=== PATIENT | male | born 2000 | race Caucasian/White ===

== ENCOUNTER 2022-08-21 10:50 | Emergency (ER) | payer SELFPAY ==
[2022-08-21] MEDS ORDERED: DIPHENHYDRAMINE 50 MG/ML VIAL ONE (12:33)
[2022-08-21] MEDS ORDERED: dexAMETHasone 10 MG/ML VIAL ONE ×2 (12:34→12:35)
[2022-08-21] MEDS ORDERED: FAMOTIDINE 20 MG TAB ONE (12:34)
--- NOTE | 2022-08-21 13:53 | EDPHYS ---
Physician Documentation [facility] Name: Jeremy Russell Age: 22 yrs Sex: Male : 2000 Arrival Date: 08/21/2022 Time: 10:57 Bed 9 Private MD: ED Physician Juancarlos Byrne HPI: 08/21 12:27 This 22 yrs old Male presents to ER via Ambulatory with complaints of Allergic Reaction.pm1 12:27 The patient's rash thought to be caused by an unknown cause. The rash is located on the pm1 body diffusely. The rash can be described as raised. Onset: The symptoms/episode began/occurred 2 day(s) ago. Associated signs and symptoms: Pertinent positives: itching, sore throat. Severity of symptoms: in the emergency department the symptoms are worse. Treatment given at home: None. The patient has not experienced similar symptoms in the past. The patient has not recently seen a physician. Historical: - Allergies: 11:57 No Known Allergies; ph - PMHx: 11:57 None; ph - PSHx: 11:57 ear tubes; ph - Immunization history:: Adult Immunizations unknown. - Social history:: Smoking status: Patient denies any tobacco usage or history of. ROS: 12:27 Constitutional: Negative for fever, chills, and weight loss, Cardiovascular: Negative pm1 for chest pain, palpitations, and edema, Respiratory: Negative for shortness of breath, cough, wheezing, and pleuritic chest pain, Abdomen/GI: Negative for abdominal pain, nausea, vomiting, diarrhea, and constipation, MS/Extremity: Negative for injury and deformity. 12:27 ENT: Positive for sore throat. 12:27 Skin: Positive for rash, diffusely. 12:27 All other systems are negative. Exam: 12:27 Constitutional: This is a well developed, well nourished patient who is awake, alert, pm1 and in no acute distress. Head/Face: Normocephalic, atraumatic. 12:27 Back: No spinal tenderness. No costovertebral tenderness. Full range of motion. Skin: Warm, dry with normal turgor. Normal color with no rashes, no lesions, and no evidence of cellulitis. MS/ Extremity: Pulses equal, no cyanosis. Neurovascular intact. Full, normal range of motion. 12:27 Eyes: Exam is negative for acute changes, Periorbital structures: no acute changes, Extraocular movements: no acute changes, Conjunctiva: no acute changes, no injection. 12:27 ENT: Exam is negative for acute changes, Mouth: no acute changes, Lips: normal, moist, Oral mucosa: normal, pink and intact, moist, Posterior pharynx: is normal. 12:27 Neck: Exam negative for acute changes. 12:27 Cardiovascular: Exam negative for acute changes, Rate: normal, Rhythm: regular, Pulses: no pulse deficits are appreciated. 12:27 Respiratory: Exam negative for acute changes, respiratory distress, shortness of breath, Breath sounds: are clear throughout, no decreased breath sounds, no stridor, no wheezing. 12:27 Neuro: Exam negative for acute changes, Orientation: is normal, Mentation: is normal, Motor: is normal, moves all fours. Vital Signs: 11:00 BP 137 / 84; Pulse 101; Resp 18; Temp 97.8; Pulse Ox 100% on R/A; Weight 108.86 kg; ph Height 5 ft. 10 in. (177.80 cm); 11:00 Body Mass Index 34.44 (108.86 kg, 177.80 cm) ph MDM: 12:02 Patient medically screened. pm1 13:51 Data reviewed: vital signs. Data interpreted: Pulse oximetry: on room air is 100 %. pm1 Interpretation: normal. 13:51 ED course: Rash almost completely resolved. pm1 13:51 Counseling: I had a detailed discussion with the patient and/or guardian regarding: the pm1 historical points, exam findings, and any diagnostic results supporting the discharge/admit diagnosis, the need for outpatient follow up, an allergy/web application dev specialist, a family practitioner, to return to the emergency department if symptoms worsen or persist or if there are any questions or concerns that arise at home. Administered Medications: 12:44 Drug: Benadryl (diphenhydrAMINE) 25 mg Route: IM; Site: right deltoid; ph 14:00 Follow up: Response: No adverse reaction ph 12:44 Drug: Pepcid (famotidine) 20 mg Route: PO; ph 14:00 Follow up: Response: No adverse reaction; Marked relief of symptoms ph 12:44 Drug: Decadron (dexamethasone) 10 mg Route: IM; Site: right deltoid; ph 14:00 Follow up: Response: No adverse reaction; Marked relief of symptoms ph Disposition: 18:06 Co-signature as Attending Physician, Juancarlos Byrne MD I agree with the assessment and rt plan of care. Disposition Summary: 08/21/22 13:53 Discharge Ordered Location: Home pm1 Problem: new pm1 Symptoms: have improved pm1 Condition: Stable pm1 Diagnosis - Rash and other nonspecific skin eruption pm1 Followup: pm1 - With: Emergency Department - When: As needed - Reason: Worsening of condition Followup: pm1 - With: Private Physician - When: 2 - 3 days - Reason: Recheck today's complaints, Continuance of care, Re-evaluation by your physician Discharge Instructions: - Discharge Summary Sheet pm1 - Hives pm1 - Rash, Adult pm1 Forms: - Medication Reconciliation Form pm1 - Thank You Letter pm1 - Antibiotic Education pm1 - Prescription Opioid Use pm1 - Work release form eb Prescriptions: - Benadryl 25 mg Oral Capsule - take 1 capsule by ORAL route every 6 hours As needed; 30 tablet; Refills: 0, pm1 Product Selection Permitted - Pepcid 20 mg Oral Tablet - take 1 tablet by ORAL route every 12 hours for 10 days; 20 tablet; Refills: 0, pm1 Product Selection Permitted - Medrol (Mir) 4 mg Oral Tablets, Dose Pack - take 1 tablet by ORAL route as directed - follow package instructions; 1 pm1 packet; Refills: 0, Product Selection Permitted Signatures: Marcia Taylor, RN RN ph Isidro Ziegler, [employer] pm1 Juancarlos Byrne MD MD rt
--- NOTE | 2022-08-21 13:53 | ER ---
Nurse's Notes [facility] Name: Jeremy Russell Age: 22 yrs Sex: Male : 2000 Arrival Date: 08/21/2022 Time: 10:57 Bed 9 Private MD: Diagnosis: Rash and other nonspecific skin eruption Presentation: 08/21 11:00 Chief complaint: Patient states: N/V/D yesterday, today began to have itching and hives ph to arms, torso, and face,reports mild SOB, states that he took a pepto yesterday but has taken that before. Coronavirus screen: Vaccine status: Patient reports receiving the 1st dose of the Covid vaccine. Ebola Screen: No symptoms or risks identified at this time. Initial Sepsis Screen: Does the patient meet any 2 criteria? No. Patient's initial sepsis screen is negative. Does the patient have a suspected source of infection? No. Patient's initial sepsis screen is negative. Risk Assessment: Do you want to hurt yourself or someone else? Patient reports no desire to harm self or others. Onset of symptoms was August 21, 2022. 11:00 Method Of Arrival: Ambulatory ph 11:00 Acuity: JAYLIN 4 ph Historical: - Allergies: 11:57 No Known Allergies; ph - PMHx: 11:57 None; ph - PSHx: 11:57 ear tubes; ph - Immunization history:: Adult Immunizations unknown. - Social history:: Smoking status: Patient denies any tobacco usage or history of. Screenin:00 [facility] ED Fall Risk Assessment (Adult) History of falling in the last 3 months, ph including since admission No falls in past 3 months (0 pts) Confusion or Disorientation No (0 pts) Intoxicated or Sedated No (0 pts) Impaired Gait No (0 pts) Mobility Assist Device Used No (0 pt) Altered Elimination No (0 pt). Abuse screen: Denies threats or abuse. Denies injuries from another. Nutritional screening: No deficits noted. Tuberculosis screening: No symptoms or risk factors identified. Assessment: 12:00 General: Appears in no apparent distress. uncomfortable, Behavior is calm, cooperative, ph appropriate for age. Pain: Denies pain. Neuro: Level of Consciousness is awake, alert, obeys commands, Oriented to person, place, time, situation. Cardiovascular: Capillary refill < 3 seconds in bilateral fingers Patient's skin is warm and dry. Respiratory: Airway is patent Respiratory effort is even, unlabored, Denies shortness of breath. Derm: Skin is healthy with good turgor, Skin is pink, warm \T\ dry. Rash noted that is itchy, red, raised, urticaria, on face, back, chest, abdomen, right hand, left hand, right arm and left arm. 14:00 Reassessment: Patient appears in no apparent distress at this time. Patient and/or ph family updated on plan of care and expected duration. Pain level reassessed. Patient is alert, oriented x 3, equal unlabored respirations, skin warm/dry/pink. Pt drowsy, reports that itching has improved, redness and hives noted to have improved. Vital Signs: 11:00 BP 137 / 84; Pulse 101; Resp 18; Temp 97.8; Pulse Ox 100% on R/A; Weight 108.86 kg; ph Height 5 ft. 10 in. (177.80 cm); 11:00 Body Mass Index 34.44 (108.86 kg, 177.80 cm) ph ED Course: 10:57 Patient arrived in ED. ss 11:55 Marcia Taylor, RN is Primary Nurse. ph 11:57 Triage completed. ph 11:57 Arm band placed on Patient placed in an exam room, on a stretcher. ph 12:00 Patient has correct armband on for positive identification. Bed in low position. Call light in reach. 12:01 Isidro Ziegler NP is [facility] pm1 12:01 Juancarlos Byrne MD is Attending Physician. pm1 14:30 No provider procedures requiring assistance completed. Patient did not have IV access ph during this emergency room visit. Administered Medications: 12:44 Drug: Benadryl (diphenhydrAMINE) 25 mg Route: IM; Site: right deltoid; ph 14:00 Follow up: Response: No adverse reaction ph 12:44 Drug: Pepcid (famotidine) 20 mg Route: PO; ph 14:00 Follow up: Response: No adverse reaction; Marked relief of symptoms ph 12:44 Drug: Decadron (dexamethasone) 10 mg Route: IM; Site: right deltoid; ph 14:00 Follow up: Response: No adverse reaction; Marked relief of symptoms ph Medication: 12:00 VIS not applicable for this client. ph Outcome: 13:53 Discharge ordered by MD. pm1 14:38 Patient left the ED. ph 14:38 Discharged to home ambulatory. ph 14:38 Condition: good 14:38 Discharge instructions given to patient, significant other, Instructed on discharge instructions, follow up and referral plans. medication usage, Demonstrated understanding of instructions, follow-up care, medications, Prescriptions given X 3. Signatures: Merry Jacobs RN RN Marcia Taylor RN RN Isidro Ziegler, [facility] pm1
[2022-08-21 14:45] VITALS: BP 137/84; TEMP 97.8; O2SAT 100
== END 2022-08-21 14:38 | disposition home or self-care (01) ==
LOC: ER 10:50
DX: R21 Rash and other nonspecific skin eruption (principal)
CPT/HCPCS: J1100; J1200